=== PATIENT | female | born 2000 | race Caucasian/White ===

== ENCOUNTER 2022-06-21 06:28 | Observation (INO) | payer OTHER ==
[~2022-06-21] VITALS: Ht 170.2 cm; Wt 60.3 kg
[~2022-06-21 06:28] MED LIST: ONDANSETRON ODT4 MG PO; PEPCID20 MG PO
[2022-06-21] MEDS ORDERED: FAMOTIDINE 20 MG/2 ML VIAL IV STA (07:43)
[2022-06-21] MEDS ORDERED: POTASSIUM CHLORIDE 20MEQ/100ML 100 ML IV ONE (07:45)
[2022-06-21] MEDS ORDERED: SODIUM CHLORIDE 0.9% 1000ML 1,000 ML IV SCH (07:45)
[2022-06-21] MEDS ORDERED: LORAZEPAM INJ 2 MG/ML VIAL IV ONE (07:45)
[2022-06-21] MEDS ORDERED: LORAZEPAM INJ 2 MG/ML VIAL ONE (07:56)
[2022-06-21] MEDS ORDERED: SODIUM CHLORIDE 0.9% 1000ML 1,000 ML ONE (07:57)
[2022-06-21] MEDS ORDERED: FAMOTIDINE 20 MG/2 ML VIAL IV ONE (07:57)
[2022-06-21] MEDS ORDERED: POTASSIUM CHLORIDE 20MEQ/100ML 100 ML ONE (07:57)
[2022-06-21] MEDS ORDERED: POTASSIUM CHLORIDE 20 MEQ TAB CR PO STA (08:50)
[2022-06-21] MEDS ORDERED: LAMOTRIGINE100 MG PO ×2 (09:01→13:39)
[2022-06-21] MEDS ORDERED: BUSPIRONE HCL10 MG PO (09:01)
[2022-06-21] MEDS ORDERED: CITALOPRAM HBR20 MG PO (09:01)
[2022-06-21] MEDS ORDERED: POTASSIUM CHLORIDE 20 MEQ TAB CR PO ONE (09:03)
[2022-06-21] MEDS: SODIUM CHLORIDE 0.9% 1000ML 1,000 ML IV SCH ×2 (10:30→18:00)
[2022-06-21] MEDS ORDERED: MELATONIN 3 MG TAB PO PRN (11:00)
[2022-06-21] MEDS ORDERED: DOCUSATE SODIUM 100 MG CAP PO PRN (11:00)
[2022-06-21] MEDS ORDERED: SIMETHICONE 80 MG CHEW PO PRN (11:00)
[2022-06-21] MEDS ORDERED: ACETAMINOPHEN 325 MG TAB PO PRN (11:00)
[2022-06-21 12:00] VITALS: BP 123/85; PULSE 80; RESP 19; TEMP 97.6; O2SAT 98
[2022-06-21] MEDS ORDERED: ONDANSETRON HCL 4 MG ORAL DISINTEGRATING TAB PO PRN (14:00)
[2022-06-21] MEDS: CITALOPRAM HYDROBROMIDE 20 MG TAB PO SCH (14:25)
[2022-06-21] MEDS: BUSPIRONE HCL 10 MG TABLET PO SCH ×2 (14:25→20:19)
[2022-06-21] MEDS: LAMOTRIGINE 100 MG TAB PO SCH (14:25)
[2022-06-21 15:36] LABS: ANION GAP 10.6 mmol/L (8-16); BLOOD UREA NITROGEN < 5 mg/dL (7-26); CALCIUM 8.6 mg/dL (8.4-10.2); CARBON DIOXIDE 24 mmol/L (22-29); CHLORIDE 110 mmol/L (98-107); CREATININE, SERUM 0.73 mg/dL (0.57-1.11); GLUCOSE 117 mg/dL (74-118); MAGNESIUM 1.9 MG/DL (1.3-2.1); POTASSIUM 3.6 mmol/L (3.5-5.1); SODIUM 141 mmol/L (136-145)
[2022-06-21 15:38] LABS: BUN/CREATININE RATIO 7 (6-25)
[2022-06-21 17:10] VITALS: BP 134/91; PULSE 101; RESP 22; TEMP 97.6; O2SAT 100
[2022-06-21 20:00] VITALS: BP 123/78; PULSE 80; RESP 17; TEMP 98.1; O2SAT 99
[2022-06-21] MEDS: ONDANSETRON HCL INJ 2MG/ML 2ML 2 MG/ML VIAL IV PRN (20:19)
[2022-06-21] MEDS ORDERED: FAMOTIDINE 20 MG TAB PO SCH (21:00)
[2022-06-22] MEDS: SODIUM CHLORIDE 0.9% 1000ML 1,000 ML IV SCH (00:10)
[2022-06-22 00:25] VITALS: BP 121/79; PULSE 105; RESP 18; TEMP 97.8; O2SAT 100
[2022-06-22 04:44] VITALS: BP 128/78; PULSE 101; RESP 17; TEMP 97.5; O2SAT 100
[2022-06-22 05:22] LABS: MAGNESIUM 1.8 MG/DL (1.3-2.1)
[2022-06-22 05:40] LABS: BASOPHILS % 0.4 % (0.0-1.0); HEMATOCRIT 34.1 % (34.2-44.1); HEMOGLOBIN 11.1 g/dL (12.0-16.0); LYMPHOCYTES # (AUTO) 2.6 (1.0-3.2); MEAN CORPUSCULAR HEMOGLOBIN 28.5 pg (28-32); MEAN CORPUSCULAR HGB CONC 32.6 g/dL (31-35); MEAN CORPUSCULAR VOLUME 87.7 fL (81-99); MONOCYTES # (AUTO) 0.4 (0.2-0.8); MONOCYTES % 7.9 % (4.4-11.3); NEUTROPHILS # (AUTO) 2.5 (2.1-6.9); NEUTROPHILS % 45.5 % (38.7-80.0); PLATELET COUNT 205 x10e3/uL (140-360); RED BLOOD COUNT 3.89 x10e6/uL (3.6-5.1)
[2022-06-22 05:53] LABS: ANION GAP 8.8 mmol/L (8-16); CALCIUM 8.3 mg/dL (8.4-10.2); CREATININE, SERUM 0.72 mg/dL (0.57-1.11); POTASSIUM 3.8 mmol/L (3.5-5.1)
[2022-06-22] MEDS: ONDANSETRON HCL INJ 2MG/ML 2ML 2 MG/ML VIAL IV PRN (07:49)
[2022-06-22 08:00] VITALS: BP 135/83; PULSE 75; RESP 22; TEMP 98.4; O2SAT 100
[2022-06-22 08:35] VITALS: BP 135/83; PULSE 75; RESP 22; TEMP 98.4; O2SAT 100
[2022-06-22] MEDS ORDERED: FOLIC ACID 1 MG TAB PO SCH (09:00)
[2022-06-22] MEDS ORDERED: THIAMINE HCL 100 MG TAB PO SCH (09:00)
[2022-06-22] MEDS: LAMOTRIGINE 100 MG TAB PO SCH (09:06)
[2022-06-22] MEDS: BUSPIRONE HCL 10 MG TABLET PO SCH (09:06)
[2022-06-22] MEDS: CITALOPRAM HYDROBROMIDE 20 MG TAB PO SCH (09:06)
[2022-06-22] MEDS ORDERED: B-1100 MG PO (10:23)
[2022-06-22] MEDS ORDERED: Folic Acid PO (10:23)
[2022-06-22] MEDS ORDERED: ONDANSETRON ODT4 MG PO (10:28)
[2022-06-22] MEDS ORDERED: METRONIDAZOLE500 MG PO (10:28)
== END 2022-06-22 10:58 | disposition home or self-care (01) ==
LOC: FSED 06:42 → ERHOLD 08:02 → MED/SURG 10:12
PROVIDERS: ADMIT Internal Medicine; ATTEND Internal Medicine
DX: K52.9 Noninfective gastroenteritis and colitis, unspecified (principal); E87.6 Hypokalemia; E83.39 Other disorders of phosphorus metabolism; F41.1 Generalized anxiety disorder; F12.20 Cannabis dependence, uncomplicated; F50.00 Anorexia nervosa, unspecified; F10.90 Alcohol use, unspecified, uncomplicated; Z71.51 Drug abuse counseling and surveillance of drug abuser; Z79.899 Other long term (current) drug therapy; Z20.822 Contact with and (suspected) exposure to COVID-19; Z59.6 Low income
CPT/HCPCS: 0223U; 36415 ×2; 80048 ×2; 80053; 80307; 81003; 81025; 83735 ×2; 84100 ×2; 85025 ×2; 93005; 96374; 96375; 97161; 99284; C9113; G0378 ×2; J2060; J2405 ×2; J3411; J3480; J7030 ×2; Q0162

== ENCOUNTER 2022-06-28 10:50 | Emergency (ER) | payer OTHER ==
[~2022-06-28] VITALS: Ht 170.2 cm; Wt 59.4 kg
[~2022-06-28 10:50] MED LIST changes: +B-1100 MG PO; +BUSPIRONE HCL10 MG PO; +CITALOPRAM HBR20 MG PO; +Folic Acid PO; +LAMOTRIGINE100 MG PO; +METRONIDAZOLE500 MG PO
[2022-06-28 11:00] VITALS: O2SAT 100
[2022-06-28] MEDS ORDERED: ANALPRAM HC 2.530 GM PR (12:32)
== END 2022-06-28 12:52 | disposition home or self-care (01) ==
LOC: FSED 11:04
DX: K62.89 Other specified diseases of anus and rectum (principal); K64.9 Unspecified hemorrhoids; R19.7 Diarrhea, unspecified; F41.9 Anxiety disorder, unspecified
CPT/HCPCS: 99282

== ENCOUNTER 2023-09-21 09:16 | Emergency (ER) | payer OTHER ==
[~2023-09-21] VITALS: Ht 170.2 cm; Wt 59.4 kg
[~2023-09-21 09:16] MED LIST changes: +ANALPRAM HC 2.530 GM PR
[2023-09-21] MEDS ORDERED: ONDANSETRON HCL INJ 2MG/ML 2ML 2 MG/ML VIAL IV ONE (09:45)
[2023-09-21] MEDS: FAMOTIDINE 20 MG/2 ML VIAL IV ONE (09:50)
[2023-09-21] MEDS: LACTATED RINGER'S 1,000 ML INJ ONE (09:52)
[2023-09-21] MEDS ORDERED: ONDANSETRON ODT4 MG PO (10:46)
[2023-09-21] MEDS ORDERED: OMEPRAZOLE40 MG PO (10:46)
[2023-09-21 11:00] VITALS: PULSE 62; RESP 18; TEMP 98.2; O2SAT 98
== END 2023-09-21 11:00 | disposition home or self-care (01) ==
LOC: FSED 09:31
DX: R11.2 Nausea with vomiting, unspecified (principal); F50.00 Anorexia nervosa, unspecified; E86.0 Dehydration; F41.9 Anxiety disorder, unspecified
CPT/HCPCS: 99284; J2405; J7121